=== PATIENT | male | born 1990 | race Caucasian/White ===

== ENCOUNTER 2017-01-17 03:11 | Emergency (ER) | payer OTHER ==
[2017-01-17 03:23] VITALS: PULSE 74; RESP 16; TEMP 97.9; O2SAT 96
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
[2017-01-17 03:49] VITALS: BP 143/74
== END 2017-01-17 04:00 | disposition home or self-care (01) ==
LOC: EDUNIT#
DX: Z04.1 Encounter for examination and observation following transport accident (principal); J45.909 Unspecified asthma, uncomplicated